=== PATIENT | male | born 1960 | race Caucasian/White ===

== ENCOUNTER 2017-03-04 09:54 | Inpatient (IN) | payer MEDICAID, OTHER ==
[2017-03-04 10:03] VITALS: BMI 30.5
--- NOTE | 2017-03-04 11:23 | C.PDOC ---
History Of Present Illness Patient is a 56 year old male who presents to the ER with a complaint of intermittent burning chest pain radiating to his back and face and shortness of breath since 02/26/17 after getting an echo, stress test, and CT last Fri by his PCP Dr. Katz. Patient has a mild cough and notes a history having a cardiac arrhythmia, MS, and has a AICD/pacemaker. Denies any fever, chills, nausea, vomiting, and worsening of pain on exertion. Time Seen by Provider: 03/04/17 10:27 Chief Complaint (Nursing): Chest Pain History Per: Patient History/Exam Limitations: no limitations Onset/Duration Of Symptoms: Days (Since 02/26/17), Intermittent Episodes Current Symptoms Are (Timing): Still Present Quality: Burning Exacerbating Factors: denies: Exertion (Chest, radiating to back and face) Past Medical History Reviewed: Historical Data, Nursing Documentation, Vital Signs Vital Signs: Last Vital Signs Temp 98.0 F 03/04/17 10:03 Pulse 61 03/04/17 12:41 Resp 15 03/04/17 12:41 BP 128/88 03/04/17 12:41 Pulse Ox 96 03/04/17 14:51 - Medical History PMH: CAD, Cardia Arrhythmia, HTN, Hyperlipidemia Other PMH: MS Surgical History: Pacemaker (AICD) - [employer] Procedures CORONAR ARTERIOGR-2 CATH (03/07/13) LEFT HEART CARDIAC CATH (03/07/13) LT HEART ANGIOCARDIOGRAM (03/07/13) Family History: States: Unknown Family Hx - Social History Hx Tobacco Use: No Hx Alcohol Use: No Hx Substance Use: No - Immunization History Hx Tetanus Toxoid Vaccination: No Hx Influenza Vaccination: No Hx Pneumococcal Vaccination: No Review Of Systems Constitutional: Negative for: Fever, Chills ENT: Positive for: Other (Face pain radiating from chest) Cardiovascular: Positive for: Chest Pain (Burning) Respiratory: Positive for: Cough (Mild), Shortness of Breath Gastrointestinal: Negative for: Nausea, Vomiting Musculoskeletal: Positive for: Back Pain (Radiating from chest) Physical Exam - Physical Exam Appears: Non-toxic, No Acute Distress Skin: Normal Color, Warm, Dry Head: Atraumatic, Normacephalic Oral Mucosa: Moist Neck: Normal ROM Chest: Symmetrical, No Deformity, Other (aicd left chest wall) Cardiovascular: Rhythm Regular, No Murmur Respiratory: Normal Breath Sounds, No Rales, No Rhonchi, No Wheezing Gastrointestinal/Abdominal: Soft, No Tenderness Extremity: No Pedal Edema, No Calf Tenderness Neurological/Psych: Oriented x3, Normal Speech, Normal Cognition ED Course And Treatment - Laboratory Results Result Diagrams: 03/04/17 11:35 03/04/17 11:35 ECG: Interpreted By Me, Viewed By Me ECG Rhythm: Sinus Rhythm (62 bpm), R BBB (Incomplete) ECG Interpretation: Abnormal Interpretation Of ECG: Possible right ventricular hypertrophy. T wave abnormality, consider anterior ischemia O2 Sat by Pulse Oximetry: 96 (Room air) Pulse Ox Interpretation: Normal - Other Rad CXR X-Ray: Viewed By Me, Read By Radiologist Interpretation: HISTORY: Chest pain and shortness of breath. COMPARISON: No prior. TECHNIQUE: Chest PA and lateral. FINDINGS: LUNGS: Mild venous congestion. More confluent increased markings in the right infrahilar region and right lung base. PLEURA: No significant pleural effusion identified. No pneumothorax apparent. CARDIOVASCULAR: Left-sided pacemaker. OSSEOUS STRUCTURES: No significant abnormalities. VISUALIZED UPPER ABDOMEN: Normal. OTHER FINDINGS: None. IMPRESSION: Mild venous congestion. More confluent increased markings in the right infrahilar region and right lung base. Progress Note: EKG and blood work ordered. Pepcid IVP administered. Medical Decision Making Medical Decision Making: pt sts burning chest pain resolved after pepcid, still has mild pain in back. [address] Katz paged [address] Katz, wants pt to be admitted and diuresed. disucssed with Dr Neal, will admit to hspitalist service Disposition Discussed With : Gil Neal (') Doctor Will See Patient In The: Hospital - Disposition Disposition: HOSPITALIZED Disposition Time: 14:53 Condition: SERIOUS - Clinical Impression Clinical Impression: Chest pain, Congestive heart failure - Scribe Statement The provider has reviewed the documentation as recorded by the Scribalvarado Whyte All medical record entries made by the Scribe were at my direction and personally dictated by me. I have reviewed the chart and agree that the record accurately reflects my personal performance of the history, physical exam, medical decision making, and the department course for this patient. I have also personally directed, reviewed, and agree with the discharge instructions and disposition. Decision To Admit - Pt Status Changed To: Hospital Disposition Of: Observation - . Bed Request Type: Telemetry Patient Diagnosis: Chest pain, Congestive heart failure
[2017-03-04 11:39] LABS: BASO # 0.1 K/uL (0.0-0.2); BASO % 1.1 % (0.0-2.0); EOS # 0.3 K/uL (0.0-0.7); EOS % 4.1 % (0.0-4.0); HEMATOCRIT 46.8 % (35.0-51.0); LYMPH # 2.7 K/uL (1.0-4.3); LYMPH % 38.2 % (20.0-40.0); MEAN CELL VOLUME 88.3 fL (80.0-94.0); MEAN CORPUSCULAR HEMOGLOBIN 29.6 pg (27.0-31.0); MEAN CORPUSCULAR HGB CONC 33.5 g/dL (33.0-37.0); MEAN PLATELET VOLUME 9.4 fL (7.2-11.7); MONO # 0.6 K/uL (0.0-0.8); MONO % 8.4 % (0.0-10.0); NRBC % 0.1 % (0.0-2.0); WHITE BLOOD COUNT 7.1 K/uL (4.8-10.8)
[2017-03-04 11:47] LABS: CHLORIDE 99 mmol/L (98-107); POTASSIUM 3.8 mmol/L (3.6-5.2); SODIUM 140 mmol/L (132-148)
[2017-03-04 11:49] LABS: ALB/GLOB RATIO 1.3 (1.0-2.1); ALKALINE PHOSPHATASE 64 U/L (38-126); AST/SGOT 54 U/L (17-59); BILIRUBIN,TOTAL 0.9 mg/dL (0.2-1.3); CARBON DIOXIDE 26 mmol/L (22-30); GFR AFRICAN-AMERICAN > 60; TOTAL PROTEIN 7.4 g/dL (6.3-8.3)
[2017-03-04 11:50] LABS: ALT/SGPT 64 U/L (21-72); BLOOD UREA NITROGEN 13 mg/dL (9-20); CALCIUM 8.7 mg/dl (8.6-10.4); GLUCOSE,RANDOM 86 mg/dL (75-110)
--- NOTE | 2017-03-04 13:34 | RAD ---
HISTORY: Chest pain and shortness of breath COMPARISON: No prior. TECHNIQUE: Chest PA and lateral FINDINGS: LUNGS: Mild venous congestion. More confluent increased markings in the right infrahilar region and right lung base. PLEURA: No significant pleural effusion identified. No pneumothorax apparent. CARDIOVASCULAR: Left-sided pacemaker. OSSEOUS STRUCTURES: No significant abnormalities. VISUALIZED UPPER ABDOMEN: Normal. OTHER FINDINGS: None. IMPRESSION: Mild venous congestion. More confluent increased markings in the right infrahilar region and right lung base.
--- NOTE | 2017-03-04 15:12 | CP.PCM.HP ---
<Kasandra Vyas - Last Filed: 03/04/17 15:39> History of Present Illness - History of Present Illness History of Present Illness: Internal medicine H & P for Hospitalist service- Kasandra Vyas, PGY-1 Pt S & E at bedside. 56 yo Welsh speaking only M w/PMH sig for CAD s/p RI w/cardiac cath, HTN, HLD admitted for chest pain x 1 week. Pt reports substernal chest pain, described as "burning", radiated up his throat, moderate intensity for 1 week [employer], pt seen by Dr. Katz in clinic 03/03, told to report to ED for chest pain. Pt reports alleviation of chest pain by pepcid. No inciting or aggravating factors identified. Admits to LANDEROS, back pain, pain with deep inspiration, inability to take a deep breath, SOB, REGAN, palpitations with exertion, weakness of B/L LE, inability to walk up stairs quickly, walks slowly, sleeps on 3 pillows at night. Denies N/V/F/C, abdominal pain, changes in bowel or bladder habits, LE swelling. PMH: HTN, HLD, CAD, s/p RI, psoriasis PSH: ACID/pacer, s/p cardiac cath All: Amiodarone (rash) SH: Denies Tobacco, ETOH, illicit drug use PMD/operations supervisor: Sterling Present on Admission - Present on Admission Any Indicators Present on Admission: No History of DVT/PE: No History of Uncontrolled Diabetes: No Urinary Catheter: No Decubitus Ulcer Present: No Review of Systems - Review of Systems All systems: reviewed and no additional remarkable complaints except - Constitutional Constitutional: Headache, Weakness. absent: Chills, Fever - EENT Eyes: absent: Change in Vision Nose/Mouth/Throat: Sore Throat - Cardiovascular Cardiovascular: Chest Pain, Dyspnea, Dyspnea on Exertion, Palpitations. absent : Leg Edema - Respiratory Respiratory: Cough (with yellow mucus). absent: Wheezing - Gastrointestinal Gastrointestinal: absent: Abdominal Pain, Change in Bowel Habits, Constipation, Diarrhea, Hematemesis, Hematochezia, Nausea, Vomiting - Genitourinary Genitourinary: absent: Dysuria, Hematuria - Musculoskeletal Musculoskeletal: Back Pain - Integumentary Integumentary: Rash (over extensor surfaces) - Neurological Neurological: Weakness Past Patient History - Infectious Disease Hx of Infectious Diseases: None - Past Medical History & Family History Past Medical History?: Yes - Past Social History Smoking Status: Never Smoked - CARDIAC Hx Cardia Arrhythmia: Yes Hx Hypertension: Yes Hx Pacemaker: Yes (AICD) - PULMONARY Hx Respiratory Disorders: No - NEUROLOGICAL Hx Neurological Disorder: No Hx Paralysis: No - HEENT Hx HEENT Problems: No - RENAL Hx Chronic Kidney Disease: No - ENDOCRINE/METABOLIC Hx Endocrine Disorders: No - HEMATOLOGICAL/ONCOLOGICAL Hx Blood Disorders: No - INTEGUMENTARY Hx Dermatological Problems: No - MUSCULOSKELETAL/RHEUMATOLOGICAL Hx Musculoskeletal Disorders: No - GASTROINTESTINAL Hx Gastrointestinal Disorders: No - GENITOURINARY/GYNECOLOGICAL Hx Genitourinary Disorders: No - PSYCHIATRIC Hx Substance Use: No - SURGICAL HISTORY Hx Surgeries: Yes Other/Comment: CARDIAC ABLATION ON JUL 2015 - ANESTHESIA Hx Anesthesia: Yes Hx Anesthesia Reactions: No Hx Malignant Hyperthermia: No Meds Allergies/Adverse Reactions: Allergies Allergy/AdvReac Type Severity Reaction Status Date / Time amiodarone Allergy Verified 03/04/17 11:33 Physical Exam - Constitutional Appears: Non-toxic, No Acute Distress - Head Exam Head Exam: ATRAUMATIC, NORMAL INSPECTION, NORMOCEPHALIC - Eye Exam Eye Exam: EOMI, Normal appearance, PERRL Pupil Exam: NORMAL ACCOMODATION, PERRL - ENT Exam ENT Exam: Mucous Membranes Moist, Normal Exam - Neck Exam Neck exam: Positive for: Full Rom, Normal Inspection - Respiratory Exam Respiratory Exam: Clear to Auscultation Bilateral, NORMAL BREATHING PATTERN. absent: Decreased Breath Sounds, Rales, Rhonchi, Wheezes, Respiratory Distress, Stridor - Cardiovascular Exam Cardiovascular Exam: REGULAR RHYTHM, +S1, +S2. absent: JVD, +S4 - GI/Abdominal Exam GI & Abdominal Exam: Normal Bowel Sounds, Soft. absent: Tenderness - Extremities Exam Extremities exam: Positive for: normal inspection. Negative for: pedal edema, tenderness - Back Exam Back exam: FULL ROM, NORMAL INSPECTION - Neurological Exam Neurological exam: Alert, CN II-XII Intact, Oriented x3 - Psychiatric Exam Psychiatric exam: Normal Affect, Normal Mood - Skin Skin Exam: Dry, Intact, Normal Color, Rash (over extensor surfaces), Warm Results - Vital Signs Recent Vital Signs: Last Vital Signs Temp 98.0 F 03/04/17 10:03 Pulse 61 03/04/17 12:41 Resp 15 03/04/17 12:41 BP 128/88 03/04/17 12:41 Pulse Ox 96 03/04/17 14:54 - Labs Result Diagrams: 03/04/17 11:35 03/04/17 11:35 Assessment & Plan - Assessment and Plan (Free Text) Assessment: CHF exacerbation Chest pain/Hx of CAD s/p RI w/cardiac cath FU Serial ROMIs Lasix 40mg IVP given in ED Lasix 40mg for tomorrow Home med: ASA 81mg I/O Daily wts Pepcid BID EKG w/RBBB- incomplete compared to previous EKG in 2015, same CXR w/mild venous congestion, increased interstitial markings cardio consulted- Vourdouris HTN BP 128/88 Home med: Metoprolol, Lisinopril HLD Home med: Lovastatin Sore throat- likely viral Afebrile No leukocytosis Clinically stable Cepacol Monitor GI/DVT ppx Pepcid Heparin SCDs Ambulate Dispo Admit to tele VS Q4H O2 PRN HHD Possible d/c in AM DW attending - Date & Time Date: 03/04/17 Time: 15:34 Decision To Admit - Pt Status Changed To: Hospital Disposition Of: Observation - . Bed Request Type: Telemetry Admitting Physician: Cosme Campbell <Cosme Campbell - Last Filed: 03/04/17 16:50> Results - Vital Signs Recent Vital Signs: Last Vital Signs Temp 98.0 F 03/04/17 10:03 Pulse 63 03/04/17 15:51 Resp 20 03/04/17 15:51 BP 125/83 03/04/17 15:51 Pulse Ox 96 03/04/17 15:51 - Labs Result Diagrams: 03/04/17 11:35 03/04/17 11:35 Labs: Laboratory Results - last 24 hr 03/04/17 16:07 APTT 35 H Attending/Attestation - Attestation I have personally seen and examined this patient.: Yes I have fully participated in the care of the patient.: Yes I have reviewed all pertinent clinical information: Yes Notes (Text): 03/04/17 16:48 Patient was seen and examined at bedside with the resident at the time of admission Patient complains of for some burning sensation in the chest which has been going on for a few days He also complains of some difficulty in breathing and states that he has to take deep breaths Patient denies chest pain at this time However we will rule out acute coronary syndrome and do serial troponins We'll also repeat the EKG We will start treatment with IV diuretics for possible congestive heart failure We will monitor the intake and output Recent echocardiogram done therefore no need to repeat the echocardiogram Cardiology evaluation is also in progress I discussed the plan of care with the resident and agree with the above history and physical and assessment/plan by the resident.
--- NOTE | 2017-03-04 15:21 | CP.PCM.CON ---
<Iona Bradford - Last Filed: 03/04/17 15:13> History of Present Illness - History of Present Illness History of Present Illness: Cardiology Consult for Dr. Katz Reason for consult: CHF exacerbation This is a 56Y M of HTN, CAD, HLD, MS, AICD/pacemaker who came in with SOB x [address] Katz yesterday in the clinic and was advised to come to the ED to be evaluated. Patient came in today. He reports he was feeling SOB and burning CP. The SOB is worse with ambulation. He uses 3 pillow at night when he sleeps. His CP is substernal. Patient was given Pepcid in the ED which relieved his pain. He recently had a cardiac work up on 02/26/17. Echo showed EF of 37% with severe LV dysfunction. He also had a nuclear stress test with final results pending. Patient states he has a sore throat with yellow phlegm. Patient denies fever, chills, n/v/d, numbness/tingling, increased edema or vision changes. PMH: HTN, CAD, MS, HLD PSH: Cardiac cath, AICD/Pacer placement Home meds: Lovastatin, Lisinopril, ASA, and Metoprolol All: Amiodarone- rash SH: Denies tobacco, alcohol or drug Review of Systems - Review of Systems Review of Systems: As per HPI Past Patient History - Infectious Disease Hx of Infectious Diseases: None - Past Medical History & Family History Past Medical History?: Yes - Past Social History Smoking Status: Never Smoked Alcohol: None Drugs: Denies Home Situation {Lives}: With Family - CARDIAC Hx Cardia Arrhythmia: Yes Hx Hypertension: Yes Hx Pacemaker: Yes (AICD) - PULMONARY Hx Respiratory Disorders: No - NEUROLOGICAL Hx Neurological Disorder: No Hx Paralysis: No - HEENT Hx HEENT Problems: No - RENAL Hx Chronic Kidney Disease: No - ENDOCRINE/METABOLIC Hx Endocrine Disorders: No - HEMATOLOGICAL/ONCOLOGICAL Hx Blood Disorders: No - INTEGUMENTARY Hx Dermatological Problems: No - MUSCULOSKELETAL/RHEUMATOLOGICAL Hx Musculoskeletal Disorders: No - GASTROINTESTINAL Hx Gastrointestinal Disorders: No - GENITOURINARY/GYNECOLOGICAL Hx Genitourinary Disorders: No - PSYCHIATRIC Hx Substance Use: No - SURGICAL HISTORY Hx Surgeries: Yes Other/Comment: CARDIAC ABLATION ON JUL 2015 - ANESTHESIA Hx Anesthesia: Yes Hx Anesthesia Reactions: No Hx Malignant Hyperthermia: No Meds Allergies/Adverse Reactions: Allergies Allergy/AdvReac Type Severity Reaction Status Date / Time No Known Allergies Allergy Verified 03/06/17 08:18 Physical Exam - Constitutional Appears: No Acute Distress - Head Exam Head Exam: ATRAUMATIC, NORMAL INSPECTION, NORMOCEPHALIC - Eye Exam Eye Exam: Normal appearance, PERRL Pupil Exam: NORMAL ACCOMODATION, PERRL - ENT Exam ENT Exam: Mucous Membranes Moist - Respiratory Exam Respiratory Exam: Clear to Auscultation Bilateral, NORMAL BREATHING PATTERN. absent: Rales, Rhonchi, Wheezes - Cardiovascular Exam Cardiovascular Exam: REGULAR RHYTHM, +S1, +S2. absent: Gallop, Rubs, Systolic Murmur - GI/Abdominal Exam GI & Abdominal Exam: Normal Bowel Sounds, Soft. absent: Firm, Guarding, Rebound , Rigid, Tenderness - Extremities Exam Extremities exam: Positive for: normal inspection. Negative for: calf tenderness, pedal edema - Neurological Exam Neurological exam: Alert, CN II-XII Intact, Oriented x3 - Psychiatric Exam Psychiatric exam: Normal Affect, Normal Mood - Skin Skin Exam: Dry, Normal Color, Warm Additional comments: rash on L knee Results - Vital Signs Recent Vital Signs: Last Vital Signs Temp 98.0 F 03/04/17 10:03 Pulse 61 03/04/17 12:41 Resp 15 03/04/17 12:41 BP 128/88 03/04/17 12:41 Pulse Ox 96 03/04/17 14:54 - Labs Result Diagrams: 03/04/17 11:35 03/04/17 11:35 Assessment & Plan - Assessment and Plan (Free Text) Assessment: This is a 56Y M with PMH HTN, CAD, MS, s/p AICD/pacer, CHF admitted for 1) CHF exacerbation with severe LV dysfunction 2) Arrhythmogenic right ventricular dysplasia 3) HTN 4) CAD 5) HLD Plan: - EKG showed incomplete RBBB with T wave abnormality- no change when compared to previous EKG - Trop neg x 1 - Continue Home meds: ASA, Lisinopril, Metoprolol, Lovastatin - Pt received 40mg of Lasix in ED- will get 40 IV in am - CXR showed mild pulm vasc congestion - Continue to monitor daily weights, strict I&O GI ppx: Pepcid DVT ppx: Heparin SC Case seen, reviewed and discussed with Dr. Sterling Bradford PGY1 - Date & Time Date: 03/04/17 Time: 15:30 <Ted Katz - Last Filed: 04/12/17 09:51> Results - Vital Signs Recent Vital Signs: Last Vital Signs Temp 97.1 F L 03/08/17 12:00 Pulse 57 L 03/08/17 04:00 Resp 14 03/08/17 04:00 BP 118/78 03/08/17 09:43 Pulse Ox 98 03/08/17 04:00 - Labs Result Diagrams: 03/07/17 06:37 03/07/17 06:34 Attending/Attestation - Attestation I have personally seen and examined this patient.: Yes I have fully participated in the care of the patient.: Yes I have reviewed all pertinent clinical information: Yes Notes (Text): 04/12/17 09:50 will have icd interrogated will need better rate control
[2017-03-04] MEDS: Benzocaine/Menthol (Cepacol) Lozenge MT SCH ×2 (16:10→20:00)
[2017-03-04] MEDS: Rosuvastatin Calcium 2.5 mg Tab PO SCH (22:08)
[2017-03-05] MEDS: Benzocaine/Menthol (Cepacol) Lozenge MT SCH ×3 (00:14→08:14)
--- NOTE | 2017-03-05 05:58 | CP.PCM.PN ---
Subjective - Date & Time of Evaluation Date of Evaluation: 03/05/17 Time of Evaluation: 05:57 - Subjective Subjective: House Doctor Call: Runs of V tach seen on telemetry. Patient does not have chest pain, palpitations or SOB. Patient does reports a "funny feeling" in his chest. Dr. Katz on case was called- recommends Amiodarone drip in ICU Amiodarone loading dose 150mg IV ordered Amiodarone drip will ordered ICU consult - Dr. Olivera was called, who accepted consult -patient to transfer to ICU. DO Carole PGY 2 Objective - Vital Signs/Intake and Output Vital Signs (last 24 hours): Temp Pulse Resp BP Pulse Ox 97.8 F 58 L 18 120/81 97 03/05/17 05:25 03/05/17 05:25 03/05/17 05:25 03/05/17 05:25 03/05/17 05:25 Intake and Output: 03/04/17 03/05/17 18:59 06:59 Intake Total 350 Output Total 200 Balance 150 - Medications Medications: Current Medications Acetaminophen (Tylenol 325mg Tab) 650 mg PO Q6 PRN PRN Reason: Pain, moderate (4-7) Aspirin (Aspirin Chewable) 81 mg PO DAILY [facility] Benzocaine/Menthol (Cepacol Sore Throat) 1 digna MT Q4H [facility] Last Admin: 03/05/17 03:21 Dose: Not Given Famotidine (Pepcid) 20 mg PO BID [facility] Last Admin: 03/04/17 18:25 Dose: 20 mg Furosemide (Lasix) 40 mg IVP DAILY [facility] Heparin Sodium (Porcine) (Heparin) 5,000 units SC Q8 [facility] Last Admin: 03/04/17 22:08 Dose: 5,000 units Lisinopril (Zestril) 20 mg PO DAILY [facility] Metoprolol Succinate (Toprol Xl) 50 mg PO ACBL [facility] Pneumococcal Polyvalent Vaccine (Pneumovax 23 Vaccine) 0.5 ml IM .ONCE ONE Stop: 03/08/17 10:01 Rosuvastatin Calcium (Crestor) 2.5 mg PO HS [facility] Last Admin: 03/04/17 22:08 Dose: 2.5 mg - Labs Labs: APTT 35 SECONDS (21-34) H 03/04/17 16:07
--- NOTE | 2017-03-05 06:41 | CP.PCM.CON ---
History of Present Illness - History of Present Illness History of Present Illness: 56 yo Brazilian speaking male with pMH of for CAD s/p MO ,AICD, HTN, HLD admitted for chest pain x 1 week. Pt reports substernal chest pain, described as "burning", radiated up his throat, moderate intensity for 1 week and shortnesss of breath.He was seen by Dr. Katz in clinic 03/03/17, told to report to ED for chest pain. No inciting or aggravating factors identified. He uses 3 pillow at night when he sleeps. His CP is substernal. Patient was given Pepcid in the ED which relieved his pain. He recently had a cardiac work up on 02/26/17. Echo showed EF of 37% with severe LV dysfunction. He also had a nuclear stress test with final results pending. Patient states he has a sore throat with yellow phlegm. Patient denies fever, chills, n/v/d, numbness/ tingling, increased edema or vision changes. patient had episodes of Vtach on 6T and [facility] recommended transfer to ICU and amiodarone drip. AICD was interrogated 02/22/17 as per patient He was on amiodarone in the past but was told that he was allegic to amiodarone by a physician in [facility] (reaction was hyperpigmentation of the skin).Due to allergy the [facility] recommended esmolol Review of Systems - Review of Systems Systems not reviewed;Unavailable: Language Barrier - Constitutional Constitutional: absent: Anorexia, Chills - EENT Eyes: absent: Change in Vision - Cardiovascular Cardiovascular: As Per HPI, Dyspnea. absent: Claudication, Diaphoresis, Edema, Irregular Heart Rhythm - Respiratory Respiratory: As Per HPI, Cough. absent: Hemoptysis, Wheezing - Gastrointestinal Gastrointestinal: absent: Change in Stool Character - Genitourinary Genitourinary: absent: Difficulty Urinating Past Patient History - Infectious Disease Hx of Infectious Diseases: None - Past Medical History & Family History Past Medical History?: Yes - Past Social History Smoking Status: Never Smoked - CARDIAC Hx Cardia Arrhythmia: Yes Hx Hypertension: Yes Hx Pacemaker: Yes (AICD) - PULMONARY Hx Respiratory Disorders: No - NEUROLOGICAL Hx Neurological Disorder: No Hx Paralysis: No - HEENT Hx HEENT Problems: No - RENAL Hx Chronic Kidney Disease: No - ENDOCRINE/METABOLIC Hx Endocrine Disorders: No - HEMATOLOGICAL/ONCOLOGICAL Hx Blood Disorders: No - INTEGUMENTARY Hx Dermatological Problems: No - MUSCULOSKELETAL/RHEUMATOLOGICAL Hx Falls: No - GASTROINTESTINAL Hx Gastrointestinal Disorders: No - GENITOURINARY/GYNECOLOGICAL Hx Genitourinary Disorders: No - PSYCHIATRIC Hx Substance Use: No - SURGICAL HISTORY Hx Surgeries: Yes Other/Comment: CARDIAC ABLATION ON JUL 2015 - ANESTHESIA Hx Anesthesia: Yes Hx Anesthesia Reactions: No Hx Malignant Hyperthermia: No Meds Allergies/Adverse Reactions: Allergies Allergy/AdvReac Type Severity Reaction Status Date / Time amiodarone Allergy Verified 03/04/17 11:33 - Medications Medications: Current Medications Acetaminophen (Tylenol 325mg Tab) 650 mg PO Q6 PRN PRN Reason: Pain, moderate (4-7) Aspirin (Aspirin Chewable) 81 mg PO DAILY [facility] Benzocaine/Menthol (Cepacol Sore Throat) 1 digna MT Q4H [facility] Last Admin: 03/05/17 03:21 Dose: Not Given Famotidine (Pepcid) 20 mg PO BID [facility] Last Admin: 03/04/17 18:25 Dose: 20 mg Furosemide (Lasix) 40 mg IVP DAILY [facility] Heparin Sodium (Porcine) (Heparin) 5,000 units SC Q8 [facility] Last Admin: 03/05/17 06:37 Dose: 5,000 units Lisinopril (Zestril) 20 mg PO DAILY [facility] Metoprolol Succinate (Toprol Xl) 50 mg PO ACBL [facility] Pneumococcal Polyvalent Vaccine (Pneumovax 23 Vaccine) 0.5 ml IM .ONCE ONE Stop: 03/08/17 10:01 Rosuvastatin Calcium (Crestor) 2.5 mg PO [facility] Last Admin: 03/04/17 22:08 Dose: 2.5 mg Physical Exam - Constitutional Appears: Non-toxic, No Acute Distress - Head Exam Head Exam: ATRAUMATIC, NORMAL INSPECTION, NORMOCEPHALIC - Eye Exam Eye Exam: EOMI, PERRL Pupil Exam: NORMAL ACCOMODATION - ENT Exam ENT Exam: Mucous Membranes Moist, Normal Exam - Neck Exam Neck exam: Positive for: Full Rom, Normal Inspection - Respiratory Exam Respiratory Exam: Clear to Auscultation Bilateral, NORMAL BREATHING PATTERN - Cardiovascular Exam Cardiovascular Exam: REGULAR RHYTHM. absent: JVD - GI/Abdominal Exam GI & Abdominal Exam: Normal Bowel Sounds, Soft. absent: Tenderness - Extremities Exam Extremities exam: Positive for: normal inspection. Negative for: calf tenderness, pedal edema - Neurological Exam Neurological exam: Alert, CN II-XII Intact, Oriented x3 Results - Vital Signs Recent Vital Signs: Last Vital Signs Temp 97.8 F 03/05/17 05:25 Pulse 58 L 03/05/17 05:25 Resp 18 03/05/17 05:25 BP 120/81 03/05/17 05:25 Pulse Ox 97 03/05/17 05:25 - Labs Result Diagrams: 03/04/17 11:35 03/04/17 11:35 Labs: Laboratory Results - last 24 hr 03/04/17 03/04/17 03/04/17 16:07 17:20 23:00 APTT 35 H Total Creatine Kinase 59 57 CK-MB (Mass) 0.91 0.83 Troponin I, Quant < 0.0120 < 0.0120 Assessment & Plan - Assessment and Plan (Free Text) Assessment: Ventricular Tachycardia-currently in NSR ,pts HR high 50's to low 60's.- labs monitor in ICU CHF exacerbation with severe LV dysfunction HTN/CAD
[2017-03-05 07:02] LABS: BASO # 0.1 K/uL (0.0-0.2); BASO % 0.8 % (0.0-2.0); EOS # 0.3 K/uL (0.0-0.7); EOS % 3.8 % (0.0-4.0); HEMATOCRIT 46.5 % (35.0-51.0); LYMPH # 3.2 K/uL (1.0-4.3); LYMPH % 45.4 % (20.0-40.0); MEAN CORPUSCULAR HEMOGLOBIN 29.8 pg (27.0-31.0); MEAN CORPUSCULAR HGB CONC 34.2 g/dL (33.0-37.0); MONO # 0.6 K/uL (0.0-0.8); MONO % 8.7 % (0.0-10.0); NRBC % 0.1 % (0.0-2.0); RED CELL DISTRIBUTION WIDTH 13.1 % (11.5-14.5)
[2017-03-05 07:10] LABS: CHLORIDE 99 mmol/L (98-107)
[2017-03-05 07:11] LABS: SODIUM 141 mmol/L (132-148)
[2017-03-05 07:12] LABS: POTASSIUM 3.7 mmol/L (3.6-5.2)
[2017-03-05 07:14] LABS: ALB/GLOB RATIO 1.4 (1.0-2.1); ALKALINE PHOSPHATASE 71 U/L (38-126); ALT/SGPT 74 U/L (21-72); AST/SGOT 61 U/L (17-59); BILIRUBIN,TOTAL 1.4 mg/dL (0.2-1.3); BLOOD UREA NITROGEN 17 mg/dL (9-20); CARBON DIOXIDE 27 mmol/L (22-30); GFR AFRICAN-AMERICAN > 60; GLUCOSE,RANDOM 93 mg/dL (75-110); TOTAL PROTEIN 7.5 g/dL (6.3-8.3)
[2017-03-05 07:15] LABS: CALCIUM 8.7 mg/dl (8.6-10.4); MAGNESIUM 2.1 mg/dL (1.6-2.3); PHOSPHOROUS 4.9 mg/dL (2.5-4.5)
[2017-03-05] MEDS ORDERED: Metoprolol Succinate 50 mg XL Tab PO SCH (07:30)
[2017-03-05] MEDS: Esmolol 2,500 MG in Sodium Chloride 0.9% 240 ML IV PRN ×2 (08:41→18:10)
--- NOTE | 2017-03-05 08:59 | CP.PCM.PN ---
<Iona Bradford - Last Filed: 03/05/17 09:44> Subjective - Date & Time of Evaluation Date of Evaluation: 03/05/17 Time of Evaluation: 07:30 - Subjective Subjective: Cardiology Progress Note for Dr. Katz Patient seen and examined at bedside. Overnight he was found to have SVT and was transferred to the ICU. During this episode he was symptomatic and had CP. As of this morning, he was in sinus rhythm and went into SVT again. He reports having CP when taking deep breaths and a headache. He also complains of his rash on his knee itching. He does not have his home med (Clobetasol cream) and is asking for it at this time. She denies CP, n/v/d, numbness/tingling. Objective - Vital Signs/Intake and Output Vital Signs (last 24 hours): Temp Pulse Resp BP Pulse Ox 97.2 F L 56 L 19 144/98 H 97 03/05/17 07:00 03/05/17 07:05 03/05/17 07:05 03/05/17 07:00 03/05/17 07:05 Intake and Output: 03/05/17 03/05/17 06:59 18:59 Intake Total 500 0 Output Total 400 0 Balance 100 0 - Medications Medications: Current Medications Acetaminophen (Tylenol 325mg Tab) 650 mg PO Q6 PRN PRN Reason: Pain, moderate (4-7) Aspirin (Aspirin Chewable) 81 mg PO DAILY [facility] Benzocaine/Menthol (Cepacol Sore Throat) 1 digna MT Q4H [facility] Last Admin: 03/05/17 08:14 Dose: Not Given Clobetasol Propionate (Temovate 0.05% Ointment) 0 applic TOP BID [facility] Famotidine (Pepcid) 20 mg PO BID [facility] Last Admin: 03/04/17 18:25 Dose: 20 mg Furosemide (Lasix) 40 mg IVP DAILY [facility] Heparin Sodium (Porcine) (Heparin) 5,000 units SC Q8 [facility] Last Admin: 03/05/17 06:37 Dose: 5,000 units Esmolol HCl 2,500 mg/ Sodium (Chloride) 250 mls @ 26.55 mls/hr IV .Q9H25M PRN; 50 MCG/KG/MIN PRN Reason: Protocol Last Admin: 03/05/17 08:41 Dose: 26.55 mls/hr Lisinopril (Zestril) 20 mg PO DAILY [facility] Metoprolol Succinate (Toprol Xl) 50 mg PO ACBL [facility] Last Admin: 03/05/17 08:27 Dose: Not Given Pneumococcal Polyvalent Vaccine (Pneumovax 23 Vaccine) 0.5 ml IM .ONCE ONE Stop: 03/08/17 10:01 Rosuvastatin Calcium (Crestor) 2.5 mg PO HS [facility] Last Admin: 03/04/17 22:08 Dose: 2.5 mg - Labs Labs: 03/05/17 06:57 03/05/17 06:57 APTT 35 SECONDS (21-34) H 03/04/17 16:07 - Constitutional Appears: No Acute Distress - Head Exam Head Exam: ATRAUMATIC, NORMAL INSPECTION, NORMOCEPHALIC - Eye Exam Eye Exam: Normal appearance Pupil Exam: NORMAL ACCOMODATION - ENT Exam ENT Exam: Mucous Membranes Moist - Respiratory Exam Respiratory Exam: Decreased Breath Sounds, Clear to Ausculation Bilateral, NORMAL BREATHING PATTERN. absent: Rales, Rhonchi, Wheezes - Cardiovascular Exam Cardiovascular Exam: REGULAR RHYTHM, +S1, +S2. absent: Tachycardia, Gallop, Rubs, Murmur - GI/Abdominal Exam GI & Abdominal Exam: Soft, Normal Bowel Sounds. absent: Guarding, Tenderness, Mass, Rebound - Extremities Exam Extremities Exam: Normal Inspection. absent: Calf Tenderness, Pedal Edema - Neurological Exam Neurological Exam: Alert, Awake, CN II-XII Intact, Oriented x3 - Psychiatric Exam Psychiatric exam: Normal Affect, Normal Mood - Skin Skin Exam: Dry, Normal Color, Rash (on L knee ), Warm Assessment and Plan - Assessment and Plan (Free Text) Assessment: This is a 56Y M with PMH HTN, CAD, PR, s/p AICD/pacer, CHF admitted for 1) CHF exacerbation with severe LV dysfunction 2) Arrhythmogenic right ventricular dysplasia 3) SVT 4) HTN 5) CAD 6) HLD Plan: - Patient will need cardiac ablation versus biventricular ICD - Patient will be transferred to [facility] for further management - AICD will be interrogated today - Continue Esmolol drip - Continue ASA, Lisinopril, Crestor - Continue Lasix IV - Continue to monitor daily weights, strict I&O - Ordered Clobetasol cream for rash GI ppx: Pepcid DVT ppx: Heparin SC Case seen, reviewed and discussed with Dr. Sterling Bradford PGY1 <Ted Katz - Last Filed: 04/12/17 09:52> Objective - Vital Signs/Intake and Output Vital Signs (last 24 hours): Temp Pulse Resp BP Pulse Ox 97.1 F L 57 L 14 118/78 98 03/08/17 12:00 03/08/17 04:00 03/08/17 04:00 03/08/17 09:43 03/08/17 04:00 - Labs Labs: 03/07/17 06:37 03/07/17 06:34 APTT 35 SECONDS (21-34) H 03/04/17 16:07 Attending/Attestation - Attestation I have personally seen and examined this patient.: Yes I have fully participated in the care of the patient.: Yes I have reviewed all pertinent clinical information, including history, physical exam and plan: Yes Notes (Text): 04/12/17 09:52 upgrade icd tx to [place]
--- NOTE | 2017-03-05 15:24 | CP.PCM.PN ---
Subjective - Date & Time of Evaluation Date of Evaluation: 03/05/17 Time of Evaluation: 15:24 - Subjective Subjective: no further cp or sob no palpitations now Objective - Vital Signs/Intake and Output Vital Signs (last 24 hours): Temp Pulse Resp BP Pulse Ox 97.2 F L 59 L 13 119/79 100 03/05/17 12:00 03/05/17 15:01 03/05/17 15:01 03/05/17 15:01 03/05/17 15:01 Intake and Output: 03/05/17 03/05/17 06:59 18:59 Intake Total 459.6 Output Total 200 Balance 259.6 - Medications Medications: Current Medications Acetaminophen (Tylenol 325mg Tab) 650 mg PO Q6 PRN PRN Reason: Pain, moderate (4-7) Aspirin (Aspirin Chewable) 81 mg PO DAILY [facility] Last Admin: 03/05/17 10:46 Dose: 81 mg Clobetasol Propionate (Temovate 0.05% Ointment) 0 applic TOP BID [facility] Last Admin: 03/05/17 10:57 Dose: 1 applic Famotidine (Pepcid) 20 mg PO BID [facility] Last Admin: 03/05/17 10:46 Dose: 20 mg Furosemide (Lasix) 40 mg IVP DAILY [facility] Last Admin: 03/05/17 10:58 Dose: Not Given Heparin Sodium (Porcine) (Heparin) 5,000 units SC Q8 [facility] Last Admin: 03/05/17 14:56 Dose: 5,000 units Esmolol HCl 2,500 mg/ Sodium (Chloride) 250 mls @ 26.55 mls/hr IV .Q9H25M PRN; 50 MCG/KG/MIN PRN Reason: Protocol Last Admin: 03/05/17 08:41 Dose: 26.55 mls/hr Lisinopril (Zestril) 20 mg PO DAILY [facility] Last Admin: 03/05/17 10:47 Dose: Not Given Rosuvastatin Calcium (Crestor) 2.5 mg PO HS [facility] Last Admin: 03/04/17 22:08 Dose: 2.5 mg - Labs Labs: APTT 35 SECONDS (21-34) H 03/04/17 16:07 - Constitutional Appears: Non-toxic, No Acute Distress - Head Exam Head Exam: ATRAUMATIC - Eye Exam Eye Exam: Normal appearance - ENT Exam ENT Exam: Mucous Membranes Moist - Respiratory Exam Respiratory Exam: Clear to Ausculation Bilateral, NORMAL BREATHING PATTERN. absent: Rales, Rhonchi, Wheezes, Respiratory Distress - Cardiovascular Exam Cardiovascular Exam: REGULAR RHYTHM, +S1, +S2. absent: Murmur - GI/Abdominal Exam GI & Abdominal Exam: Soft, Normal Bowel Sounds. absent: Tenderness, Organomegaly - Neurological Exam Neurological Exam: Alert, Awake, Oriented x3 Assessment and Plan - Assessment and Plan (Free Text) Assessment: V tach- non sustained currently NSR on esmolol drip ? allergic to amiodarone but found to be non allergic changes in skin - side effect that is resolved plan for ablation per cards CHF exacerbation systolic acute on chronic - EF 30% Chest pain/Hx of CAD s/p [place] w/cardiac cath has AICD/PPM Home med: ASA 81mg I/O Daily wts Pepcid BID EKG w/RBBB- incomplete compared to previous EKG in 2015, same CXR w/mild venous congestion, increased interstitial markings cardio consulted- [facility] following HTN BP 128/88 Home med: Metoprolol, Lisinopril HLD Home med: Lovastatin Sore throat- likely viral Afebrile No leukocytosis Clinically stable Cepacol Monitor GI/DVT ppx Pepcid Heparin SCDs Ambulate Dispo cont icu care for now
[2017-03-05] MEDS: Rosuvastatin Calcium 2.5 mg Tab PO SCH (21:08)
[2017-03-06] MEDS: Esmolol 2,500 MG in Sodium Chloride 0.9% 240 ML IV PRN (02:19)
[2017-03-06 06:44] LABS: BASO % 0.5 % (0.0-2.0); EOS # 0.3 K/uL (0.0-0.7); EOS % 3.9 % (0.0-4.0); HEMATOCRIT 44.2 % (35.0-51.0); LYMPH # 2.9 K/uL (1.0-4.3); LYMPH % 41.9 % (20.0-40.0); MEAN CELL VOLUME 88.1 fL (80.0-94.0); MEAN CORPUSCULAR HEMOGLOBIN 30.2 pg (27.0-31.0); MEAN CORPUSCULAR HGB CONC 34.3 g/dL (33.0-37.0); MEAN PLATELET VOLUME 9.3 fL (7.2-11.7); MONO # 0.6 K/uL (0.0-0.8); MONO % 8.2 % (0.0-10.0); NRBC % 0.2 % (0.0-2.0)
[2017-03-06 06:53] LABS: CHLORIDE 97 mmol/L (98-107)
[2017-03-06 06:54] LABS: POTASSIUM 3.8 mmol/L (3.6-5.2); SODIUM 140 mmol/L (132-148)
[2017-03-06 06:56] LABS: ALB/GLOB RATIO 1.2 (1.0-2.1); ALKALINE PHOSPHATASE 65 U/L (38-126); ALT/SGPT 68 U/L (21-72); AST/SGOT 53 U/L (17-59); BILIRUBIN,TOTAL 0.9 mg/dL (0.2-1.3); BLOOD UREA NITROGEN 15 mg/dL (9-20); CARBON DIOXIDE 29 mmol/L (22-30); GFR AFRICAN-AMERICAN > 60; TOTAL PROTEIN 6.8 g/dL (6.3-8.3)
[2017-03-06 06:57] LABS: CALCIUM 8.4 mg/dl (8.6-10.4); GLUCOSE,RANDOM 103 mg/dL (75-110); MAGNESIUM 2.1 mg/dL (1.6-2.3); PHOSPHOROUS 4.2 mg/dL (2.5-4.5)
--- NOTE | 2017-03-06 08:25 | CP.PCM.PN ---
Subjective - Date & Time of Evaluation Date of Evaluation: 03/06/17 Time of Evaluation: 07:50 - Subjective Subjective: tolerating po Objective - Vital Signs/Intake and Output Vital Signs (last 24 hours): Temp Pulse Resp BP Pulse Ox 98 F 59 L 15 104/77 100 03/06/17 04:00 03/06/17 07:10 03/06/17 07:10 03/06/17 07:10 03/06/17 07:10 Intake and Output: 03/06/17 03/06/17 06:59 18:59 Intake Total 809.2 26.6 Output Total 1000 Balance -190.8 26.6 - Medications Medications: Current Medications Acetaminophen (Tylenol 325mg Tab) 650 mg PO Q6 PRN PRN Reason: Pain, moderate (4-7) Amiodarone HCl (Cordarone) 200 mg PO DAILY [facility] Aspirin (Aspirin Chewable) 81 mg PO DAILY [facility] Last Admin: 03/05/17 10:46 Dose: 81 mg Clobetasol Propionate (Temovate 0.05% Ointment) 0 applic TOP BID [facility] Last Admin: 03/05/17 17:24 Dose: 1 applic Famotidine (Pepcid) 20 mg PO BID [facility] Last Admin: 03/05/17 17:24 Dose: 20 mg Furosemide (Lasix) 40 mg IVP DAILY [facility] Last Admin: 03/05/17 10:58 Dose: Not Given Heparin Sodium (Porcine) (Heparin) 5,000 units SC Q8 [facility] Last Admin: 03/06/17 05:05 Dose: 5,000 units Lisinopril (Zestril) 20 mg PO DAILY [facility] Last Admin: 03/05/17 10:47 Dose: Not Given Rosuvastatin Calcium (Crestor) 2.5 mg PO HS [facility] Last Admin: 03/05/17 21:08 Dose: 2.5 mg - Labs Labs: 03/06/17 06:34 03/06/17 06:35 APTT 35 SECONDS (21-34) H 03/04/17 16:07 - Constitutional Appears: Well - Head Exam Head Exam: ATRAUMATIC - Eye Exam Eye Exam: Normal appearance - ENT Exam ENT Exam: Mucous Membranes Moist - Respiratory Exam Respiratory Exam: Clear to Ausculation Bilateral - Cardiovascular Exam Cardiovascular Exam: REGULAR RHYTHM - GI/Abdominal Exam GI & Abdominal Exam: Normal Bowel Sounds - Exam External exam: NORMAL EXTERNAL EXAM - Extremities Exam Extremities Exam: Normal Inspection - Neurological Exam Neurological Exam: Awake Assessment and Plan (1) Congestive heart failure Assessment & Plan: Upgrade ICD continue chf management Status: Acute
[2017-03-06] MEDS ORDERED: Potassium Chloride 20 mEq ER Tab PO ONE ×2 (08:44→10:00)
[2017-03-06] MEDS: Enoxaparin 40 mg Syringe SC SCH (11:13)
--- NOTE | 2017-03-06 12:48 | CP.CCUPN ---
CCU Subjective - Physician Review Events Since Last Encounter (Free Text): 03/06/17 12:47 Patient seen and examined in the morning. He is very anxious at times. This am around 8 he had an episode of VT of 2-3 seconds, it resolved on it's own, he had a sensation of Started amiodarone 200 mg po this morning. Esmolod drip d/c 10 ros asked and negative except for above pe: bp 106/81 mmhg, hr 66 bpm, rr 13 bpm, O2 99% on RA aaox3 middle age male sitting in bed, anxious looking s1, s2 rrr lungs good bilateral air of entry abdomen soft, non tender no muscular weakness a/p: Vetnricular tachycardia: started amiodarone po this am, replaced K, for ablation on wednesday, patietn aware. CHF with AICD and a pacemaker set at 50 bpm. HTN: BP so far well controlled HLD Might transfer to the floor tomorrow CCU Objective - Vital Signs / Intake & Output Vital Signs (Last 4 hours): Vital Signs BP 03/06/17 09:53 115/80 Intake and Output (Last 8hrs): Intake & Output 03/05/17 03/06/17 03/06/17 22:59 06:59 14:59 Intake Total 712.8 452.8 536.4 Output Total 550 700 540 Balance 162.8 -247.2 -3.6 Weight 193 lb Intake: Intake, IV Amount 212.8 212.8 106.4 right forearm 212.8 212.8 106.4 Oral 500 240 430 Output: Urine 550 700 540 Urine, Voided 550 700 540 Other: # Voids Urine, Voided 0 # Bowel Movements 0 1 - Medications Active Medications: Active Medications Generic Name Dose Route Start Last Admin Trade Name Freq PRN Reason Stop Dose Admin Amiodarone HCl 200 mg 03/06/17 08:15 03/06/17 10:00 Cordarone PO Not Given DAILY [facility] Aspirin 81 mg 03/05/17 10:00 03/06/17 11:23 Aspirin Chewable PO 81 mg DAILY [facility] Administration Clobetasol Propionate 0 applic 03/05/17 10:00 03/06/17 09:53 Temovate 0.05% Ointment TOP 1 applic BID [facility] Administration Enoxaparin Sodium 40 mg 03/06/17 10:00 03/06/17 11:13 Lovenox SC 40 mg DAILY [facility] Administration Famotidine 20 mg 03/04/17 18:00 03/06/17 09:53 Pepcid PO 20 mg BID [facility] Administration Furosemide 40 mg 03/05/17 10:00 03/06/17 09:53 Lasix IVP 40 mg DAILY [facility] Administration Lisinopril 20 mg 03/05/17 10:00 03/06/17 09:53 Zestril PO 20 mg DAILY [facility] Administration Rosuvastatin Calcium 2.5 mg 03/04/17 22:00 03/05/17 21:08 Crestor PO 2.5 mg HS [facility] Administration - Patient Studies Lab Studies: Microbiology Studies 03/05/17 10:00 MRSA Culture (Admit) - Final Naris MRSA NOT DETECTED Lab Studies 03/06/17 03/06/17 Range/Units 06:35 06:34 WBC 7.0 (4.8-10.8) K/uL RBC 5.02 (4.40-5.90) Mil/uL Hgb 15.2 (12.0-18.0) g/dL Hct 44.2 (35.0-51.0) % MCV 88.1 (80.0-94.0) fL MCH 30.2 (27.0-31.0) pg MCHC 34.3 (33.0-37.0) g/dL RDW 13.0 (11.5-14.5) % Plt Count 241 (130-400) K/uL MPV 9.3 (7.2-11.7) fL Neut % (Auto) 45.5 L (50.0-75.0) % Lymph % (Auto) 41.9 H (20.0-40.0) % Norman % (Auto) 8.2 (0.0-10.0) % Eos % (Auto) 3.9 (0.0-4.0) % Baso % (Auto) 0.5 (0.0-2.0) % Neut # 3.2 (1.8-7.0) K/uL Lymph # 2.9 (1.0-4.3) K/uL Norman # 0.6 (0.0-0.8) K/uL Eos # 0.3 (0.0-0.7) K/uL Baso # 0.0 (0.0-0.2) K/uL Sodium 140 (132-148) mmol/L Potassium 3.8 (3.6-5.2) mmol/L Chloride 97 L (98-107) mmol/L Carbon Dioxide 29 (22-30) mmol/L Anion Gap 18 (10-20) BUN 15 (9-20) mg/dL Creatinine 0.9 (0.8-1.5) MG/DL Est GFR ( Amer) > 60 Est GFR (Non-Af Amer) > 60 Random Glucose 103 (75-110) mg/dL Calcium 8.4 L (8.6-10.4) mg/dl Phosphorus 4.2 (2.5-4.5) mg/dL Magnesium 2.1 (1.6-2.3) mg/dL Total Bilirubin 0.9 (0.2-1.3) mg/dL AST 53 (17-59) U/L ALT 68 (21-72) U/L Alkaline Phosphatase 65 (38-126) U/L Total Protein 6.8 (6.3-8.3) g/dL Albumin 3.8 (3.5-5.0) g/dL Globulin 3.0 (2.2-3.9) gm/dL Albumin/Globulin Ratio 1.2 (1.0-2.1) Laboratory Results - last 24 hr 03/06/17 03/06/17 06:34 06:35 WBC 7.0 RBC 5.02 Hgb 15.2 Hct 44.2 MCV 88.1 MCH 30.2 MCHC 34.3 RDW 13.0 Plt Count 241 MPV 9.3 Neut % (Auto) 45.5 L Lymph % (Auto) 41.9 H Norman % (Auto) 8.2 Eos % (Auto) 3.9 Baso % (Auto) 0.5 Neut # 3.2 Lymph # 2.9 Norman # 0.6 Eos # 0.3 Baso # 0.0 Sodium 140 Potassium 3.8 Chloride 97 L Carbon Dioxide 29 Anion Gap 18 BUN 15 Creatinine 0.9 Est GFR ( Amer) > 60 Est GFR (Non-Af Amer) > 60 Random Glucose 103 Calcium 8.4 L Phosphorus 4.2 Magnesium 2.1 Total Bilirubin 0.9 AST 53 ALT 68 Alkaline Phosphatase 65 Total Protein 6.8 Albumin 3.8 Globulin 3.0 Albumin/Globulin Ratio 1.2
--- NOTE | 2017-03-06 13:14 | CP.PCM.PN ---
Subjective - Date & Time of Evaluation Date of Evaluation: 03/06/17 Time of Evaluation: 13:13 - Subjective Subjective: no cp no sob does get occasional palpitations lasting seconds no radiation Objective - Vital Signs/Intake and Output Vital Signs (last 24 hours): Temp Pulse Resp BP Pulse Ox 98 F 59 L 15 115/80 100 03/06/17 04:00 03/06/17 07:10 03/06/17 07:10 03/06/17 09:53 03/06/17 07:10 Intake and Output: 03/06/17 03/06/17 06:59 18:59 Intake Total 809.2 816.4 Output Total 1000 960 Balance -190.8 -143.6 - Medications Medications: Current Medications Amiodarone HCl (Cordarone) 200 mg PO DAILY [facility] Last Admin: 03/06/17 10:00 Dose: Not Given Aspirin (Aspirin Chewable) 81 mg PO DAILY [facility] Last Admin: 03/06/17 11:23 Dose: 81 mg Clobetasol Propionate (Temovate 0.05% Ointment) 0 applic TOP BID [facility] Last Admin: 03/06/17 09:53 Dose: 1 applic Enoxaparin Sodium (Lovenox) 40 mg SC DAILY [facility] Last Admin: 03/06/17 11:13 Dose: 40 mg Famotidine (Pepcid) 20 mg PO BID [facility] Last Admin: 03/06/17 09:53 Dose: 20 mg Furosemide (Lasix) 40 mg IVP DAILY [facility] Last Admin: 03/06/17 09:53 Dose: 40 mg Lisinopril (Zestril) 20 mg PO DAILY [facility] Last Admin: 03/06/17 09:53 Dose: 20 mg Rosuvastatin Calcium (Crestor) 2.5 mg PO HS [facility] Last Admin: 03/05/17 21:08 Dose: 2.5 mg - Labs Labs: 03/06/17 06:34 03/06/17 06:35 APTT 35 SECONDS (21-34) H 03/04/17 16:07 - Constitutional Appears: Well, Non-toxic, No Acute Distress - Head Exam Head Exam: ATRAUMATIC - Respiratory Exam Respiratory Exam: Clear to Ausculation Bilateral. absent: Rales, Rhonchi, Wheezes - Cardiovascular Exam Cardiovascular Exam: REGULAR RHYTHM, +S1, +S2. absent: Murmur - GI/Abdominal Exam GI & Abdominal Exam: Soft, Normal Bowel Sounds. absent: Tenderness, Organomegaly - Neurological Exam Neurological Exam: Alert, Awake, Oriented x3 Assessment and Plan - Assessment and Plan (Free Text) Assessment: V tach- non sustained currently NSR now on AMiodarone NOT allergic to amiodarone found to be non allergic changes in skin - side effect that is resolved plan for ablation per cards CHF exacerbation systolic acute on chronic - EF 30% Chest pain/Hx of CAD s/p ID w/cardiac cath has AICD/PPM Home med: ASA 81mg I/O Daily wts Pepcid BID EKG w/RBBB- incomplete compared to previous EKG in 2015, same CXR w/mild venous congestion, increased interstitial markings cardio consulted- [facility] following HTN BP 128/88 Home med: Metoprolol, Lisinopril HLD Home med: Lovastatin Sore throat- likely viral Afebrile No leukocytosis Clinically stable Cepacol Monitor GI/DVT ppx Pepcid Lovenox SCDs Ambulate Dispo cont icu care for now
[2017-03-06] MEDS: Rosuvastatin Calcium 2.5 mg Tab PO SCH (23:00)
[2017-03-07 06:44] LABS: BASO # 0.1 K/uL (0.0-0.2); BASO % 0.8 % (0.0-2.0); EOS # 0.3 K/uL (0.0-0.7); EOS % 3.7 % (0.0-4.0); HEMATOCRIT 47.2 % (35.0-51.0); LYMPH # 2.7 K/uL (1.0-4.3); LYMPH % 38.4 % (20.0-40.0); MEAN CELL VOLUME 88.4 fL (80.0-94.0); MEAN CORPUSCULAR HEMOGLOBIN 29.9 pg (27.0-31.0); MEAN CORPUSCULAR HGB CONC 33.8 g/dL (33.0-37.0); MEAN PLATELET VOLUME 9.2 fL (7.2-11.7); MONO # 0.6 K/uL (0.0-0.8); NRBC % 0.1 % (0.0-2.0); WHITE BLOOD COUNT 7.1 K/uL (4.8-10.8)
[2017-03-07 06:57] LABS: CHLORIDE 97 mmol/L (98-107)
[2017-03-07 06:58] LABS: POTASSIUM 3.8 mmol/L (3.6-5.2); SODIUM 142 mmol/L (132-148)
[2017-03-07 07:00] LABS: ALB/GLOB RATIO 1.2 (1.0-2.1); ALKALINE PHOSPHATASE 60 U/L (38-126); AST/SGOT 54 U/L (17-59); BILIRUBIN,TOTAL 1.1 mg/dL (0.2-1.3); CARBON DIOXIDE 28 mmol/L (22-30); GFR AFRICAN-AMERICAN > 60; TOTAL PROTEIN 7.1 g/dL (6.3-8.3)
[2017-03-07 07:01] LABS: ALT/SGPT 67 U/L (21-72); BLOOD UREA NITROGEN 14 mg/dL (9-20); CALCIUM 8.3 mg/dl (8.6-10.4); GLUCOSE,RANDOM 87 mg/dL (75-110); MAGNESIUM 2.1 mg/dL (1.6-2.3); PHOSPHOROUS 4.6 mg/dL (2.5-4.5)
--- NOTE | 2017-03-07 08:23 | CP.PCM.PN ---
Subjective - Date & Time of Evaluation Date of Evaluation: 03/07/17 Time of Evaluation: 08:10 - Subjective Subjective: no issue no vt Objective - Vital Signs/Intake and Output Vital Signs (last 24 hours): Temp Pulse Resp BP Pulse Ox 98 F 53 L 14 119/93 H 97 03/07/17 08:00 03/07/17 08:03 03/07/17 08:03 03/07/17 08:03 03/07/17 08:03 Intake and Output: 03/07/17 03/07/17 06:59 18:59 Intake Total 900 Output Total 850 Balance 50 - Medications Medications: Current Medications Amiodarone HCl (Cordarone) 200 mg PO DAILY [facility] Last Admin: 03/06/17 10:00 Dose: Not Given Aspirin (Aspirin Chewable) 81 mg PO DAILY [facility] Last Admin: 03/06/17 11:23 Dose: 81 mg Clobetasol Propionate (Temovate 0.05% Ointment) 0 applic TOP BID [facility] Last Admin: 03/06/17 18:00 Dose: 1 applic Enoxaparin Sodium (Lovenox) 40 mg SC DAILY [facility] Last Admin: 03/06/17 11:13 Dose: 40 mg Famotidine (Pepcid) 20 mg PO BID [facility] Last Admin: 03/06/17 18:21 Dose: 20 mg Furosemide (Lasix) 40 mg IVP DAILY [facility] Last Admin: 03/06/17 09:53 Dose: 40 mg Lisinopril (Zestril) 20 mg PO DAILY [facility] Last Admin: 03/06/17 09:53 Dose: 20 mg Rosuvastatin Calcium (Crestor) 2.5 mg PO [facility] Last Admin: 03/06/17 23:00 Dose: 2.5 mg Zolpidem Tartrate (Ambien) 5 mg PO [facility] Stop: 03/07/17 23:59 Last Admin: 03/06/17 23:00 Dose: 5 mg - Labs Labs: 03/07/17 06:37 03/07/17 06:34 APTT 35 SECONDS (21-34) H 03/04/17 16:07 - Constitutional Appears: Well - Head Exam Head Exam: ATRAUMATIC - Eye Exam Eye Exam: Normal appearance - ENT Exam ENT Exam: Mucous Membranes Moist - Respiratory Exam Respiratory Exam: Clear to Ausculation Bilateral - Cardiovascular Exam Cardiovascular Exam: REGULAR RHYTHM - GI/Abdominal Exam GI & Abdominal Exam: Normal Bowel Sounds - Exam External exam: NORMAL EXTERNAL EXAM - Extremities Exam Extremities Exam: Normal Inspection - Neurological Exam Neurological Exam: Alert, Awake - Psychiatric Exam Psychiatric exam: Normal Mood Assessment and Plan (1) Congestive heart failure Assessment & Plan: tx for upgrade Status: Acute (2) Ventricular tachycardia Status: Acute
[2017-03-07] MEDS: Enoxaparin 40 mg Syringe SC SCH (10:17)
--- NOTE | 2017-03-07 13:09 | CP.PCM.PN ---
Subjective - Date & Time of Evaluation Date of Evaluation: 03/07/17 Time of Evaluation: 13:08 - Subjective Subjective: has palpitations occ no cp no sob no fast hr Objective - Vital Signs/Intake and Output Vital Signs (last 24 hours): Temp Pulse Resp BP Pulse Ox 98 F 54 L 16 107/68 98 03/07/17 08:00 03/07/17 12:03 03/07/17 12:03 03/07/17 12:03 03/07/17 12:03 Intake and Output: 03/07/17 03/07/17 06:59 18:59 Intake Total 900 420 Output Total 850 250 Balance 50 170 - Medications Medications: Current Medications Alprazolam (Xanax) 0.25 mg PO Q12H [facility] Stop: 03/14/17 09:01 Last Admin: 03/07/17 10:18 Dose: 0.25 mg Amiodarone HCl (Cordarone) 200 mg PO DAILY [facility] Last Admin: 03/07/17 09:48 Dose: 200 mg Aspirin (Aspirin Chewable) 81 mg PO DAILY [facility] Last Admin: 03/07/17 09:48 Dose: 81 mg Clobetasol Propionate (Temovate 0.05% Ointment) 0 applic TOP BID [facility] Last Admin: 03/07/17 10:18 Dose: 1 applic Enoxaparin Sodium (Lovenox) 40 mg SC DAILY [facility] Last Admin: 03/07/17 10:17 Dose: 40 mg Famotidine (Pepcid) 20 mg PO BID [facility] Last Admin: 03/07/17 09:48 Dose: 20 mg Furosemide (Lasix) 40 mg IVP DAILY [facility] Last Admin: 03/07/17 09:48 Dose: 40 mg Lisinopril (Zestril) 20 mg PO DAILY [facility] Last Admin: 03/07/17 09:48 Dose: 20 mg Rosuvastatin Calcium (Crestor) 2.5 mg PO HS [facility] Last Admin: 03/06/17 23:00 Dose: 2.5 mg Zolpidem Tartrate (Ambien) 5 mg PO HS [facility] Stop: 03/07/17 23:59 Last Admin: 03/06/17 23:00 Dose: 5 mg - Labs Labs: 03/07/17 06:37 03/07/17 06:34 APTT 35 SECONDS (21-34) H 03/04/17 16:07 - Constitutional Appears: Well, Non-toxic, No Acute Distress - Head Exam Head Exam: ATRAUMATIC - ENT Exam ENT Exam: Mucous Membranes Moist - Respiratory Exam Respiratory Exam: Clear to Ausculation Bilateral, NORMAL BREATHING PATTERN. absent: Rales, Rhonchi, Wheezes - Cardiovascular Exam Cardiovascular Exam: REGULAR RHYTHM, +S1, +S2 - GI/Abdominal Exam GI & Abdominal Exam: Soft, Normal Bowel Sounds. absent: Tenderness, Organomegaly - Neurological Exam Neurological Exam: Alert, Awake, Oriented x3 Assessment and Plan - Assessment and Plan (Free Text) Assessment: V tach- non sustained currently NSR now on AMiodarone NOT allergic to amiodarone found to be non allergic changes in skin - side effect that is resolved plan for ablation per cards CHF exacerbation systolic acute on chronic - EF 30% Chest pain/Hx of CAD s/p PR w/cardiac cath has AICD/PPM Home med: ASA 81mg I/O Daily wts Pepcid BID EKG w/RBBB- incomplete compared to previous EKG in 2014, same CXR w/mild venous congestion, increased interstitial markings cardio consulted- Vourdouris following HTN BP 128/88 Home med: Metoprolol, Lisinopril HLD Home med: Lovastatin Sore throat- likely viral Afebrile No leukocytosis Clinically stable Cepacol Monitor GI/DVT ppx Pepcid Lovenox SCDs Ambulate Dispo cont icu care for now while awaiting possible transfer for ablation
--- NOTE | 2017-03-07 15:27 | CP.CCUPN ---
CCU Subjective - Physician Review Events Since Last Encounter (Free Text): 03/07/17 15:19 Patient seen and examined in the morning. Did not have any episodes of of V tach after the episode for yesterday am. No allergic reaction to amiodarone after 24 hours. 10 ros asked and negative except for above pe: bp 107/68 mmhg, hr 54 bpm, rr 16 bpm, O2 99% on RA, T 98 F aaox3 middle age male sitting in bed, anxious looking s1, s2 rrr lungs good bilateral air of entry abdomen soft, non tender no muscular weakness a/p: Ventricular tachycardia: no further V. tach episodes after amiodarone started CHF with AICD and a pacemaker set at 50 bpm. HTN: BP so far well controlled HLD Transfer to the floor tomorrow CCU Objective - Vital Signs / Intake & Output Vital Signs (Last 4 hours): Vital Signs Pulse Resp BP Pulse Ox 03/07/17 12:03 54 L 16 107/68 98 03/07/17 12:00 55 L 19 107/68 97 Intake and Output (Last 8hrs): Intake & Output 03/07/17 03/07/17 03/07/17 06:59 14:59 22:59 Intake Total 240 420 Output Total 550 250 Balance -310 170 Weight 192 lb Intake: Oral 240 420 Output: Urine 550 250 Urine, Voided 550 250 Other: # Voids Urine, Voided 1 1 # Bowel Movements 1 - Medications Active Medications: Active Medications Generic Name Dose Route Start Last Admin Trade Name Freq PRN Reason Stop Dose Admin Alprazolam 0.25 mg 03/07/17 09:00 03/07/17 10:18 Xanax PO 03/14/17 09:01 0.25 mg Q12H [facility] Administration Amiodarone HCl 200 mg 03/06/17 08:15 03/07/17 09:48 Cordarone PO 200 mg DAILY [facility] Administration Aspirin 81 mg 03/05/17 10:00 03/07/17 09:48 Aspirin Chewable PO 81 mg DAILY [facility] Administration Clobetasol Propionate 0 applic 03/05/17 10:00 03/07/17 10:18 Temovate 0.05% Ointment TOP 1 applic BID [facility] Administration Enoxaparin Sodium 40 mg 03/06/17 10:00 03/07/17 10:17 Lovenox SC 40 mg DAILY [facility] Administration Famotidine 20 mg 03/08/17 10:00 Pepcid PO DAILY [facility] Furosemide 40 mg 03/05/17 10:00 03/07/17 09:48 Lasix IVP 40 mg DAILY [facility] Administration Lisinopril 20 mg 03/05/17 10:00 03/07/17 09:48 Zestril PO 20 mg DAILY [facility] Administration Rosuvastatin Calcium 2.5 mg 03/04/17 22:00 03/06/17 23:00 Crestor PO 2.5 mg HS [facility] Administration Zolpidem Tartrate 5 mg 03/06/17 22:00 03/06/17 23:00 Ambien PO 03/07/17 23:59 5 mg HS [facility] Administration - Patient Studies Lab Studies: Microbiology Studies 03/05/17 10:00 MRSA Culture (Admit) - Final Naris MRSA NOT DETECTED Lab Studies 03/07/17 03/07/17 Range/Units 06:37 06:34 WBC 7.1 (4.8-10.8) K/uL RBC 5.35 (4.40-5.90) Mil/uL Hgb 16.0 (12.0-18.0) g/dL Hct 47.2 (35.0-51.0) % MCV 88.4 (80.0-94.0) fL MCH 29.9 (27.0-31.0) pg MCHC 33.8 (33.0-37.0) g/dL RDW 13.0 (11.5-14.5) % Plt Count 242 (130-400) K/uL MPV 9.2 (7.2-11.7) fL Neut % (Auto) 49.1 L (50.0-75.0) % Lymph % (Auto) 38.4 (20.0-40.0) % [place] % (Auto) 8.0 (0.0-10.0) % Eos % (Auto) 3.7 (0.0-4.0) % Baso % (Auto) 0.8 (0.0-2.0) % Neut # 3.5 (1.8-7.0) K/uL Lymph # 2.7 (1.0-4.3) K/uL [place] # 0.6 (0.0-0.8) K/uL Eos # 0.3 (0.0-0.7) K/uL Baso # 0.1 (0.0-0.2) K/uL Sodium 142 (132-148) mmol/L Potassium 3.8 (3.6-5.2) mmol/L Chloride 97 L (98-107) mmol/L Carbon Dioxide 28 (22-30) mmol/L Anion Gap 20 (10-20) BUN 14 (9-20) mg/dL Creatinine 0.9 (0.8-1.5) MG/DL Est GFR ( Amer) > 60 Est GFR (Non-Af Amer) > 60 Random Glucose 87 (75-110) mg/dL Calcium 8.3 L (8.6-10.4) mg/dl Phosphorus 4.6 H (2.5-4.5) mg/dL Magnesium 2.1 (1.6-2.3) mg/dL Total Bilirubin 1.1 (0.2-1.3) mg/dL AST 54 (17-59) U/L ALT 67 (21-72) U/L Alkaline Phosphatase 60 (38-126) U/L Total Protein 7.1 (6.3-8.3) g/dL Albumin 3.9 (3.5-5.0) g/dL Globulin 3.2 (2.2-3.9) gm/dL Albumin/Globulin Ratio 1.2 (1.0-2.1) Laboratory Results - last 24 hr 03/07/17 03/07/17 06:34 06:37 WBC 7.1 RBC 5.35 Hgb 16.0 Hct 47.2 MCV 88.4 MCH 29.9 MCHC 33.8 RDW 13.0 Plt Count 242 MPV 9.2 Neut % (Auto) 49.1 L Lymph % (Auto) 38.4 [place] % (Auto) 8.0 Eos % (Auto) 3.7 Baso % (Auto) 0.8 Neut # 3.5 Lymph # 2.7 [place] # 0.6 Eos # 0.3 Baso # 0.1 Sodium 142 Potassium 3.8 Chloride 97 L Carbon Dioxide 28 Anion Gap 20 BUN 14 Creatinine 0.9 Est GFR ( Amer) > 60 Est GFR (Non-Af Amer) > 60 Random Glucose 87 Calcium 8.3 L Phosphorus 4.6 H Magnesium 2.1 Total Bilirubin 1.1 AST 54 ALT 67 Alkaline Phosphatase 60 Total Protein 7.1 Albumin 3.9 Globulin 3.2 Albumin/Globulin Ratio 1.2
--- NOTE | 2017-03-07 16:33 | CARD ---
APPROVED REPORT EKG Measurement Heart [id number] <Conclusion> Sinus bradycardia Right axis deviation Possible Right ventricular hypertrophy ST elevation, consider inferior injury or recent mi. suggest serial ekgs. Consider right ventricular involvement in acute inferior infarct Abnormal ECG
[2017-03-07] MEDS: Rosuvastatin Calcium 2.5 mg Tab PO SCH (21:31)
[2017-03-08 07:09] VITALS: PULSE 57; RESP 14; O2SAT 98
[2017-03-08] MEDS: Enoxaparin 40 mg Syringe SC SCH (09:43)
[2017-03-08 09:45] VITALS: BP 118/78
[2017-03-08] MEDS ORDERED: Pneumococcal 23-Valent Vaccine IM ONE (10:00)
--- NOTE | 2017-03-08 12:23 | CARD ---
APPROVED REPORT EKG Measurement Heart [id number] [place] 182P13 [id number] <Conclusion> Sinus bradycardia Possible Right ventricular hypertrophy Cannot rule out Inferior infarct, age undetermined Abnormal ECG
--- NOTE | 2017-03-08 12:27 | CARD ---
APPROVED REPORT EKG Measurement Heart [id number] [place] 172P45 [id number] <Conclusion> Sinus bradycardia Possible Right ventricular hypertrophy Nonspecific T wave abnormality Abnormal ECG
--- NOTE | 2017-03-08 12:34 | CARD ---
APPROVED REPORT EKG Measurement Heart [id number] [place] [id number] [id number] <Conclusion> Normal sinus rhythm Incomplete right bundle branch block Possible Right ventricular hypertrophy T wave abnormality, consider anterior ischemia Abnormal ECG
--- NOTE | 2017-03-08 12:58 | CP.PCM.PN ---
Subjective - Date & Time of Evaluation Date of Evaluation: 03/08/17 Time of Evaluation: 13:00 - Subjective Subjective: Patient was seen and examined at bedside Patient appears comfortable with no acute distress Objective - Vital Signs/Intake and Output Vital Signs (last 24 hours): Temp Pulse Resp BP Pulse Ox 98.6 F 57 L 14 118/78 98 03/08/17 08:00 03/08/17 04:00 03/08/17 04:00 03/08/17 09:43 03/08/17 04:00 Intake and Output: 03/08/17 03/08/17 06:59 18:59 Intake Total 100 50 Output Total 0 Balance 100 50 - Medications Medications: Current Medications Alprazolam (Xanax) 0.25 mg PO Q12H [facility] Stop: 03/14/17 09:01 Last Admin: 03/08/17 09:43 Dose: 0.25 mg Amiodarone HCl (Cordarone) 200 mg PO DAILY [facility] Last Admin: 03/08/17 09:43 Dose: 200 mg Aspirin (Aspirin Chewable) 81 mg PO DAILY [facility] Last Admin: 03/08/17 09:43 Dose: 81 mg Clobetasol Propionate (Temovate 0.05% Ointment) 0 applic TOP BID [facility] Last Admin: 03/08/17 09:48 Dose: 1 applic Enoxaparin Sodium (Lovenox) 40 mg SC DAILY [facility] Last Admin: 03/08/17 09:43 Dose: 40 mg Famotidine (Pepcid) 20 mg PO DAILY [facility] Last Admin: 03/08/17 09:43 Dose: 20 mg Furosemide (Lasix) 40 mg IVP DAILY [facility] Last Admin: 03/08/17 09:43 Dose: 40 mg Lisinopril (Zestril) 20 mg PO DAILY [facility] Last Admin: 03/08/17 09:44 Dose: 20 mg Rosuvastatin Calcium (Crestor) 2.5 mg PO HS [facility] Last Admin: 03/07/17 21:31 Dose: 2.5 mg - Labs Labs: 03/07/17 06:37 03/07/17 06:34 APTT 35 SECONDS (21-34) H 03/04/17 16:07 - Head Exam Head Exam: ATRAUMATIC, NORMOCEPHALIC - Eye Exam Eye Exam: EOMI, Normal appearance, PERRL - ENT Exam ENT Exam: Mucous Membranes Moist - Respiratory Exam Respiratory Exam: Clear to Ausculation Bilateral - GI/Abdominal Exam GI & Abdominal Exam: Soft. absent: Tenderness - Extremities Exam Extremities Exam: absent: Pedal Edema - Neurological Exam Neurological Exam: Alert, Awake, Oriented x3 Assessment and Plan - Assessment and Plan (Free Text) Plan: V tach- non sustained currently NSR now on Amiodarone plan for ablation per cards CHF exacerbation systolic acute on chronic - EF 30% Chest pain/Hx of CAD s/p MD w/cardiac cath has AICD/PPM Home med: ASA 81mg I/O Daily wts HTN BP 128/88 Home med: Metoprolol, Lisinopril HLD Home med: Lovastatin Sore throat- likely viral Afebrile No leukocytosis Clinically stable Cepacol Monitor GI/DVT ppx Pepcid Lovenox SCDs Ambulate Dispo Plan for transfer to another facility for ablation
[2017-03-08 13:20] VITALS: TEMP 97.1
--- NOTE | 2017-03-08 19:10 | CP.PCM.PN ---
<Kaz Luo - Last Filed: 03/08/17 19:03> Subjective - Date & Time of Evaluation Date of Evaluation: 03/08/17 Time of Evaluation: 19:04 - Subjective Subjective: Cardiology Progress Note Dr. Katz Patient seen and examined at the bedside. No acute distress. No acute events overnight. Nursing staff reports no issues. The patient denies fever, chills, changes in vision/hearing, headache, chest pain, palpitations, shortness of breath, abdominal pain, N/V/D/C, changes in bowel/bladder, and extremity paresthesias. Objective - Vital Signs/Intake and Output Vital Signs (last 24 hours): Temp Pulse Resp BP Pulse Ox 97.1 F L 57 L 14 118/78 98 03/08/17 12:00 03/08/17 04:00 03/08/17 04:00 03/08/17 09:43 03/08/17 04:00 Intake and Output: 03/08/17 03/09/17 18:59 06:59 Intake Total 50 Balance 50 - Labs Labs: 03/07/17 06:37 03/07/17 06:34 APTT 35 SECONDS (21-34) H 03/04/17 16:07 - Constitutional Appears: Well, No Acute Distress - Head Exam Head Exam: ATRAUMATIC, NORMAL INSPECTION, NORMOCEPHALIC - Eye Exam Eye Exam: EOMI, Normal appearance, PERRL - ENT Exam ENT Exam: Mucous Membranes Moist, Normal Exam - Neck Exam Neck Exam: Full ROM, Normal Inspection. absent: Lymphadenopathy - Respiratory Exam Respiratory Exam: Clear to Ausculation Bilateral, NORMAL BREATHING PATTERN. absent: Rhonchi, Wheezes - Cardiovascular Exam Cardiovascular Exam: REGULAR RHYTHM, RRR, +S1, +S2. absent: Diastolic murmur, Murmur - GI/Abdominal Exam GI & Abdominal Exam: Soft, Normal Bowel Sounds. absent: Guarding, Rigid, Tenderness - Extremities Exam Extremities Exam: Full ROM, Normal Capillary Refill, Normal Inspection. absent : Joint Swelling, Pedal Edema - Neurological Exam Neurological Exam: Alert, Awake, CN II-XII Intact, Normal Gait, Oriented x3 - Psychiatric Exam Psychiatric exam: Normal Affect, Normal Mood - Skin Skin Exam: Dry, Intact, Normal Color, Warm Assessment and Plan - Assessment and Plan (Free Text) Assessment: This is a 56Y M with PMH HTN, CAD, RI, s/p AICD/pacer, CHF admitted for 1) CHF exacerbation with severe LV dysfunction 2) Arrhythmogenic right ventricular dysplasia 3) SVT 4) HTN 5) CAD 6) HLD Plan: 1.) Ventricular Tachycardia - No V. tach episodes - Amiodarone 200mg Po daily - CHF with AICD and a pacemaker set at 50 bpm. - Crestor 2.5mg PO HS - Lisinopril 20mg PO daily - Lasix 40mg IV daily - Aspirin 81mg PO daily 2.) Prophylaxis - GI ppx: Pepcid 20mg PO dialy -DVT ppx: Lovenox 40mg SC daily Jerry Puja PGY1 <Ted Katz - Last Filed: 04/12/17 09:54> Objective - Vital Signs/Intake and Output Vital Signs (last 24 hours): Temp Pulse Resp BP Pulse Ox 97.1 F L 57 L 14 118/78 98 03/08/17 12:00 03/08/17 04:00 03/08/17 04:00 03/08/17 09:43 03/08/17 04:00 - Labs Labs: 03/07/17 06:37 03/07/17 06:34 APTT 35 SECONDS (21-34) H 03/04/17 16:07 Assessment and Plan (1) Congestive heart failure Status: Acute Attending/Attestation - Attestation I have personally seen and examined this patient.: Yes I have fully participated in the care of the patient.: Yes I have reviewed all pertinent clinical information, including history, physical exam and plan: Yes Notes (Text): 04/12/17 09:54 no events overnight stable
--- NOTE | 2017-03-10 16:06 | CP.PCM.DIS ---
Provider - Provider Date of Admission: 03/05/17 09:09 Attending physician: Gil Neal DO Time Spent in preparation of Discharge (in minutes): 25 Hospital Course - Lab Results Lab Results: Micro Results 03/05/17 10:00 Naris MRSA Culture (Admit) - Final MRSA NOT DETECTED Most Recent Lab Values WBC 7.1 K/uL (4.8-10.8) 03/07/17 06:37 RBC 5.35 Mil/uL (4.40-5.90) 03/07/17 06:37 Hgb 16.0 g/dL (12.0-18.0) 03/07/17 06:37 Hct 47.2 % (35.0-51.0) 03/07/17 06:37 MCV 88.4 fL (80.0-94.0) 03/07/17 06:37 MCH 29.9 pg (27.0-31.0) 03/07/17 06:37 MCHC 33.8 g/dL (33.0-37.0) 03/07/17 06:37 RDW 13.0 % (11.5-14.5) 03/07/17 06:37 Plt Count 242 K/uL (130-400) 03/07/17 06:37 MPV 9.2 fL (7.2-11.7) 03/07/17 06:37 Neut % (Auto) 49.1 % (50.0-75.0) L 03/07/17 06:37 Lymph % (Auto) 38.4 % (20.0-40.0) 03/07/17 06:37 [place] % (Auto) 8.0 % (0.0-10.0) 03/07/17 06:37 Eos % (Auto) 3.7 % (0.0-4.0) 03/07/17 06:37 Baso % (Auto) 0.8 % (0.0-2.0) 03/07/17 06:37 Neut # 3.5 K/uL (1.8-7.0) 03/07/17 06:37 Lymph # 2.7 K/uL (1.0-4.3) 03/07/17 06:37 [place] # 0.6 K/uL (0.0-0.8) 03/07/17 06:37 Eos # 0.3 K/uL (0.0-0.7) 03/07/17 06:37 Baso # 0.1 K/uL (0.0-0.2) 03/07/17 06:37 APTT 35 SECONDS (21-34) H 03/04/17 16:07 Sodium 142 mmol/L (132-148) 03/07/17 06:34 Potassium 3.8 mmol/L (3.6-5.2) 03/07/17 06:34 Chloride 97 mmol/L (98-107) L 03/07/17 06:34 Carbon Dioxide 28 mmol/L (22-30) 03/07/17 06:34 Anion Gap 20 (10-20) 03/07/17 06:34 BUN 14 mg/dL (9-20) 03/07/17 06:34 Creatinine 0.9 MG/DL (0.8-1.5) 03/07/17 06:34 Est GFR ( Amer) > 60 03/07/17 06:34 Est GFR (Non-Af Amer) > 60 03/07/17 06:34 Random Glucose 87 mg/dL (75-110) 03/07/17 06:34 Calcium 8.3 mg/dl (8.6-10.4) L 03/07/17 06:34 Phosphorus 4.6 mg/dL (2.5-4.5) H 03/07/17 06:34 Magnesium 2.1 mg/dL (1.6-2.3) 03/07/17 06:34 Total Bilirubin 1.1 mg/dL (0.2-1.3) 03/07/17 06:34 AST 54 U/L (17-59) 03/07/17 06:34 ALT 67 U/L (21-72) 03/07/17 06:34 Alkaline Phosphatase 60 U/L (38-126) 03/07/17 06:34 Total Creatine Kinase 53 U/L (55-170) L 03/05/17 06:57 CK-MB (Mass) 0.77 ng/mL (0.0-3.38) 03/05/17 06:57 Troponin I 0.0170 ng/mL (0.00-0.120) 03/04/17 11:35 Troponin I, Quant 0.0140 ng/mL (0.00-0.120) 03/05/17 06:57 Total Protein 7.1 g/dL (6.3-8.3) 03/07/17 06:34 Albumin 3.9 g/dL (3.5-5.0) 03/07/17 06:34 Globulin 3.2 gm/dL (2.2-3.9) 03/07/17 06:34 Albumin/Globulin Ratio 1.2 (1.0-2.1) 03/07/17 06:34 - Hospital Course Hospital Course: 56 yo Urdu speaking only M w/PMH sig for CAD s/p OK w/cardiac cath, HTN, HLD admitted for chest pain x 1 week. Pt reports substernal chest pain, described as "burning", radiated up his throat, moderate intensity for 1 week [employer], pt seen by Dr. Katz in clinic 03/03, told to report to ED for chest pain. Pt reports alleviation of chest pain by pepcid. No inciting or aggravating factors identified. Admits to LANDEROS, back pain, pain with deep inspiration, inability to take a deep breath, SOB, REGAN, palpitations with exertion, weakness of B/L LE, inability to walk up stairs quickly, walks slowly, sleeps on 3 pillows at night. Denies N/V/F/C, abdominal pain, changes in bowel or bladder habits, LE swelling. during the hospital stay patient was treated for V tach- non sustained with the amiodarone. CHF exacerbation systolic acute on chronic - EF 30% Chest pain/Hx of CAD s/p OK w/cardiac cath has AICD/PPM Home med: ASA 81mg I/O Daily wts HTN BP 128/88 Home med: Metoprolol, Lisinopril HLD on statin Sore throat- likely viral Afebrile No leukocytosis Clinically stable Cepacol Monitor GI/DVT ppx Pepcid Lovenox SCDs Ambulate Patient was transferred to another facility for ablation Discharge Exam - Head Exam Head Exam: ATRAUMATIC, NORMOCEPHALIC Discharge Plan - Follow Up Plan Condition: SERIOUS Disposition: Trans to Other Acute Care Hosp
== END 2017-03-08 15:10 | disposition short-term general hospital (02) | DRG 127 ==
LOC: C.ER 09:54 → C.9E 14:51 → C.6T 15:36 → C.9I 03-05 07:28 → OBSVTOIN 03-05 09:09
PROVIDERS: ADMIT Hospitalist; ATTEND Hospitalist
DX: I11.0 Hypertensive heart disease with heart failure (principal); I47.2 Ventricular tachycardia; I47.1 Supraventricular tachycardia; I50.23 Acute on chronic systolic (congestive) heart failure; E78.5 Hyperlipidemia, unspecified; I25.10 Atherosclerotic heart disease of native coronary artery without angina pectoris; Z95.0 Presence of cardiac pacemaker; Z95.810 Presence of automatic (implantable) cardiac defibrillator; I25.2 Old myocardial infarction; I45.10 Unspecified right bundle-branch block